=== PATIENT | male | born 1955 | race Caucasian/White ===

== ENCOUNTER 2016-09-18 22:51 | Emergency (ER) | payer OTHER ==
[2016-09-18] MEDS ORDERED: METHYLPREDNISOLONE PF 125MG/VIAL IVP ONE (22:56)
[2016-09-18] MEDS ORDERED: IPRATROPIUM/ALBUTEROL (0.5MG/3MG) NEB INH ONE (22:56)
--- NOTE | 2016-09-18 22:58 | Emergency Department Record ---
History of Present Illness - General Chief Complaint: Difficulty Breathing Stated Complaint: VADIM Time Seen by Provider: 09/18/16 22:55 Source: Patient, Family - History of Present Illness Initial Comments: The patient states he was sitting watching TV in his chair about 3 hours ago, got up, and became very SOB and Dizzy/lightheaded. He states his chest "felt like he was drowning," so he came here due to his SOB. He has a history of CHF and COPD due to 50 pack year smoking history. He quit smoking 15 months ago. He states this problems of SOB and dizziness happens to him daily, but tonight it was worse. He went to the [facility] 3 days ago and was given new medications of spironolactone, potassium, and zebeta (synthetic B1 selective). He also is on 40 mg lasix twice daily, which he has taken today. He also states he has NOT gained weight in the past 3 days, denies n,v,d, URI symptoms, ap, calf tenderness. He also denies [place], CVA, PE, DVT. He does state he has a history of CHF, and so do his family members. MD Complaint: Shortness of breath - Related Data Home Medications Medication Instructions Recorded Confirmed Last Taken Aspirin [Aspirin EC] 81 mg PO DAILY 09/18/16 09/18/16 Unknown Bisoprolol Fumarate 5 mg PO DAILY 09/18/16 Unknown Furosemide [Lasix] 40 mg PO BID 09/18/16 09/18/16 Unknown Lisinopril 20 mg PO DAILY 09/18/16 09/18/16 Unknown Omeprazole [Prilosec] 20 mg PO DAILY 09/18/16 09/18/16 Unknown Potassium Chloride 10 meq PO DAILY 09/18/16 09/18/16 Unknown Spironolactone 25 mg PO DAILY 09/18/16 09/18/16 Unknown Tamsulosin HCl [Flomax] 0.4 mg PO DAILY 09/18/16 09/18/16 Unknown Allergies Allergy/AdvReac Type Severity Reaction Status Date / Time ibuprofen AdvReac Gastric Verified 09/18/16 22:52 Ulcer hx Review of Systems Reviewed: No additional complaints except as noted below Constitutional: Reports: As per HPI. Denies: Chills, Fever, Malaise, Night sweats, Weakness, Weight change Eyes: Reports: As per HPI. Denies: Eye discharge, Eye pain, Photophobia, Vision change ENT: Reports: As per HPI. Denies: Congestion, Dental pain, Ear pain, Epistaxis , Hearing loss, Throat pain Respiratory: Reports: As per HPI. Denies: Cough, Dyspnea, Hemoptysis, Stridor, Wheezes Cardiovascular: Reports: As per HPI. Denies: Arrhythmia, Chest pain, Dyspnea on exertion, Edema, Murmurs, Orthopnea, Palpitations, Paroxysmal nocturnal dyspnea, Rheumatic Fever, Syncope Endocrine: Reports: As per HPI. Denies: Fatigue, Heat or cold intolerance, Polydipsia, Polyuria Gastrointestinal: Reports: As per HPI. Denies: Abdominal pain, Constipation, Diarrhea, Hematemesis, Hematochezia, Melena, Nausea, Vomiting Genitourinary: Reports: As per HPI. Denies: Dysuria, Frequency, Hematuria, Incontinence, Retention, Testicular pain, Testicular mass, Urgency Musculoskeletal: Reports: As per HPI. Denies: Arthralgia, Back pain, Gout, Joint swelling, Myalgia, Neck pain Skin: Reports: As per HPI. Denies: Bruising, Change in color, Change in hair/ nails, Lesions, Pruritus, Rash Neurological: Reports: As per HPI. Denies: Abnormal gait, Confusion, Headache, Numbness, Paresthesias, Seizure, Tingling, Tremors, Vertigo, Weakness Psychiatric: Reports: As per HPI. Denies: Anxiety, Auditory hallucinations, Depression, Homicidal thoughts, Suicidal thoughts, Visual hallucinations Hematological/Lymphatic: Reports: As per HPI. Denies: Anemia, Blood Clots, Easy bleeding, Easy bruising, Swollen glands Past Medical History - SOCIAL HISTORY Smoking Status: Former smoker (greater than 50 pack year history) Physical Exam - General General Appearance: Alert, Oriented x3, Cooperative, Moderate distress (speaks sentences breathlessly) - Head Head exam: Normal inspection - Eye Eye exam: Normal appearance, PERRL Pupils: Normal accommodation - ENT ENT exam: Normal exam, Mucous membranes moist, Normal external ear exam, Normal orophraynx, TM's normal bilaterally Ear exam: Normal external inspection. negative: External canal tenderness Nasal Exam: Normal inspection. negative: Discharge, Sinus tenderness Mouth exam: Normal external inspection, Tongue normal Teeth exam: Normal inspection. negative: Dental caries Throat exam: Normal inspection. negative: Tonsillar erythema, Tonsillar exudate - Neck Neck exam: Normal inspection, Full ROM. negative: Tenderness - Respiratory Respiratory exam: Decreased breath sounds, Prolonged expiratory, Respiratory distress (moderate tachypnea). negative: Accessory muscle use, Chest wall tenderness, Rales, Stridor, Wheezes - Cardiovascular Cardiovascular Exam: Regular rate, Normal rhythm, Normal heart sounds - GI/Abdominal GI/Abdominal exam: Soft, Normal bowel sounds, Other (protruberant abdomen, nontender). negative: Tenderness - Rectal Rectal exam: Deferred - exam: Deferred - Extremities Extremities exam: Normal inspection, Full ROM, Normal capillary refill. negative: Calf tenderness, Pedal edema, Tenderness - Back Back exam: Reports: Normal inspection, Full ROM. Denies: Muscle spasm, Rash noted, Tenderness - Neurological Neurological exam: Alert, Normal gait, Oriented X3, Reflexes normal - Psychiatric Psychiatric exam: Normal affect, Normal mood - Skin Skin exam: Dry, Intact, Normal color, Warm. negative: Cyanosis, Diaphoretic Course - Reevaluation(s) Reevaluation #1: Patient states he feels better after his first nebulizer. Respiratory rate is improving. BP is 104 systolic, so lasix not ordered. 09/18/16 23:24 Reevaluation #2: Patient is angry and insisting he be discharged NOW. He wishes to "sit up and be treated like a human being." Not willing to wait for all results. UA not obtained. 09/18/16 23:53 Medical Decision Making - Management Options MDM Management: No Additional Work-up Planned - Data Complexity MDM Data: Labs Ordered and/or Reviewed, X-Ray Ordered and/or Reviewed (CXR: Neg per ED physician. (left AMA before final reading)), EKG Ordered and/or Reviewed - Lab Data Result diagrams: 09/18/16 23:00 09/18/16 23:00 - EKG Data -: EKG Interpreted by Nd EKG: No Acute Changes (Nonspecific ST-T as before on 10-20-12.), Unchanged From Previous Disposition Disposition: Discharge Clinical Impression: SOB (shortness of breath) on exertion, Renal insufficiency, mild Alcohol intoxication Qualifiers: Complication of substance-induced condition: uncomplicated Qualified Code(s): F10.920 - Alcohol use, unspecified with intoxication, uncomplicated Disposition: Against Medical Advice Instructions: Dyspnea (ED) Additional Instructions: Follow with PCP in [place] and/or [facility] in [place] (given verbally). Forms: Patient Portal Access
[2016-09-18 23:07] LABS: BASO % 0.6 % (0-6); EOS % 0.9 % (0-6); HEMATOCRIT 41.1 % (42.0-52.0); HEMOGLOBIN 13.9 gm/dl (14.0-18.0); LYMPH % 33.9 % (16-45); MEAN CELL VOLUME 95.4 fl (81-97); MEAN CORPUSCULAR HGB CONC 33.8 g/dl (32-36); MEAN PLATELET VOLUME 8.6 fl (7.4-10.4); MONO % 10.6 % (0-9); PLATELET COUNT 345 K/uL (130-400); RED BLOOD COUNT 4.31 M/uL (4.40-5.70); RED CELL DISTRIBUTION WIDTH 12.6 % (11.5-14.5); WHITE BLOOD COUNT W/O DIFF 14.1 K/uL (4.2-12.2)
[2016-09-18 23:10] LABS: MEAN CORPUSCULAR HEMOGLOBIN 32.2 pg (27-33)
[2016-09-18 23:16] LABS: ANION GAP 16.3 (7-16); BLOOD UREA NITROGEN 30 mg/dL (9-20); CARBON DIOXIDE 16.7 mmol/L (22-30); CREATININE 1.3 mg/dL (0.66-1.25); EST GLOMERULAR FILTRATION RATE > 60 ml/min; GLUCOSE,RANDOM 157 mg/dL (70-110)
[2016-09-18 23:29] LABS: TROPONIN I < 0.012 ng/mL (0.00-0.034)
[2016-09-19] LABS: ALBUMIN 4.6 gm/dL (3.5-5.0); BILIRUBIN,TOTAL 0.47 mg/dL (0.2-1.3); TOTAL PROTEIN 7.7 gm/dL (6.3-8.2)
--- NOTE | 2016-09-21 08:34 | RADIOLOGY REPORT ---
EXAM: CHEST, TWO VIEWS HISTORY: DIFFICULTY BREATHING. TECHNIQUE: Frontal and lateral views of the chest were obtained. Comparison: None. FINDINGS: The heart size is normal. Atheromatous change of the thoracic aorta. Osteopenia. The lungs are clear. No pneumothorax. IMPRESSION: NO ACUTE CARDIOPULMONARY PROCESS. JOB NUMBER: [id number] MTDD
== END 2016-09-19 00:04 | disposition left against medical advice (07) ==
LOC: ER 22:51
DX: R06.02 Shortness of breath (principal); R42 Dizziness and giddiness; J44.9 Chronic obstructive pulmonary disease, unspecified; I50.9 Heart failure, unspecified; F10.120 Alcohol abuse with intoxication, uncomplicated; Y90.8 Blood alcohol level of 240 mg/100 ml or more; Z87.891 Personal history of nicotine dependence
CPT/HCPCS: 99284 ×2; 96374; 85025; 80076; 84484; 80048; 85379; 83880; 71020; 94640; 93005; 93010; G0480; 80320; J2930